=== PATIENT | female | born 1975 ===

== ENCOUNTER 2017-05-14 09:00 | Outpatient (CLI) | payer OTHER | END 2017-05-14 11:00 | disposition home or self-care (01) | LOC: ECT 09:00 | DX: F33.2 Major depressive disorder, recurrent severe without psychotic features (principal); F90.9 Attention-deficit hyperactivity disorder, unspecified type; F42.9 Obsessive-compulsive disorder, unspecified; I10 Essential (primary) hypertension; M06.9 Rheumatoid arthritis, unspecified; M47.9 Spondylosis, unspecified; Z90.49 Acquired absence of other specified parts of digestive tract ==

== ENCOUNTER 2017-05-29 05:08 | Outpatient (RCR) | payer OTHER ==
[~2017-05-29] VITALS: Ht 142.2 cm; Wt 53.5 kg
[2017-05-29] MEDS ORDERED: Succinylcholine 20mg/ml 10ml vial ONE ×4 (05:09)
[2017-05-29] MEDS ORDERED: Midazolam 2mg/2ml Inj ONE ×4 (05:09)
[2017-05-29] MEDS ORDERED: Norco 5mg/325mg tab ONE ×4 (05:09)
[2017-05-29] MEDS ORDERED: Methohexital Sodium Syr 100mg/10ml IVP ONE ×4 (05:09)
[2017-05-29] MEDS ORDERED: SUMAtriptan 6mg/0.5ml Inj SUBQ ONE ×4 (05:09)
[2017-05-29] MEDS ORDERED: NS 550ML IV ONE ×4 (05:09)
[2017-05-29] MEDS ORDERED: Norco 5mg/325mg tab ORAL PRN (07:30)
[2017-05-31] MEDS ORDERED: NS 550ML IV ONE (07:00)
[2017-05-31] MEDS ORDERED: Midazolam 2mg/2ml Inj ONE (07:00)
[2017-05-31] MEDS ORDERED: Methohexital Sodium Syr 100mg/10ml IVP ONE (07:00)
[2017-05-31] MEDS ORDERED: Succinylcholine 20mg/ml 10ml vial ONE (07:00)
[2017-05-31] MEDS ORDERED: Norco 5mg/325mg tab ONE (07:00)
[2017-05-31] MEDS ORDERED: SUMAtriptan 6mg/0.5ml Inj SUBQ ONE (07:00)
[2017-05-31] MEDS ORDERED: Norco 5mg/325mg tab ORAL PRN (09:04)
[2017-06-03] MEDS ORDERED: SUMAtriptan 6mg/0.5ml Inj SUBQ ONE (08:00)
[2017-06-03] MEDS ORDERED: Methohexital Sodium Syr 100mg/10ml IVP ONE (08:00)
[2017-06-03] MEDS ORDERED: NS 550ML IV ONE (08:00)
[2017-06-03] MEDS ORDERED: Norco 5mg/325mg tab ONE (08:00)
[2017-06-03] MEDS ORDERED: Succinylcholine 20mg/ml 10ml vial ONE (08:00)
[2017-06-03] MEDS ORDERED: Norco 5mg/325mg tab ORAL PRN (09:44)
[2017-06-05] MEDS ORDERED: Norco 5mg/325mg tab ONE (05:00)
[2017-06-05] MEDS ORDERED: SUMAtriptan 6mg/0.5ml Inj SUBQ ONE (05:00)
[2017-06-05] MEDS ORDERED: Succinylcholine 20mg/ml 10ml vial ONE (05:00)
[2017-06-05] MEDS ORDERED: Methohexital Sodium Syr 100mg/10ml IVP ONE (05:00)
[2017-06-05] MEDS ORDERED: NS 550ML IV ONE (05:00)
[2017-06-05] MEDS ORDERED: Midazolam 2mg/2ml Inj ONE (05:00)
[2017-06-05] MEDS ORDERED: Norco 5mg/325mg tab ORAL PRN (10:10)
[2017-06-07] MEDS ORDERED: Succinylcholine 20mg/ml 10ml vial ONE (07:00)
[2017-06-07] MEDS ORDERED: SUMAtriptan 6mg/0.5ml Inj SUBQ ONE (07:00)
[2017-06-07] MEDS ORDERED: Methohexital Sodium Syr 100mg/10ml IVP ONE (07:00)
[2017-06-07] MEDS ORDERED: Midazolam 2mg/2ml Inj ONE (07:00)
[2017-06-07] MEDS ORDERED: Norco 5mg/325mg tab ONE (07:00)
[2017-06-07] MEDS ORDERED: NS 550ML IV ONE (07:00)
[2017-06-07] MEDS ORDERED: Norco 5mg/325mg tab ORAL PRN (07:59)
[2017-06-10] MEDS ORDERED: Norco 5mg/325mg tab ORAL PRN (08:04)
[2017-06-12] MEDS ORDERED: Norco 5mg/325mg tab ORAL ONE (10:09)
[2017-06-14] MEDS ORDERED: Norco 5mg/325mg tab ORAL PRN (09:02)
== END 2017-06-17 | disposition home or self-care (01) ==
LOC: ECT 05:08
DX: F33.2 Major depressive disorder, recurrent severe without psychotic features (principal); F90.9 Attention-deficit hyperactivity disorder, unspecified type; Z90.49 Acquired absence of other specified parts of digestive tract; I10 Essential (primary) hypertension; M32.9 Systemic lupus erythematosus, unspecified; M06.9 Rheumatoid arthritis, unspecified; M47.9 Spondylosis, unspecified; Z98.84 Bariatric surgery status
CPT/HCPCS: 90870; J0330; J2250; J3030; J7040

== ENCOUNTER 2017-06-19 05:31 | Outpatient (RCR) | payer OTHER ==
[~2017-06-19] VITALS: Ht 142.2 cm; Wt 53.5 kg
[2017-06-19] MEDS ORDERED: NS 550ML IV ONE (05:32)
[2017-06-19] MEDS ORDERED: Midazolam 2mg/2ml Inj ONE (05:32)
[2017-06-19] MEDS ORDERED: Methohexital Sodium Syr 100mg/10ml IVP ONE (05:32)
[2017-06-19] MEDS ORDERED: SUMAtriptan 6mg/0.5ml Inj SUBQ ONE (05:32)
[2017-06-19] MEDS ORDERED: Succinylcholine 20mg/ml 10ml vial ONE (05:32)
[2017-06-19] MEDS ORDERED: Norco 5mg/325mg tab ONE (05:32)
[2017-06-19] MEDS ORDERED: Norco 5mg/325mg tab ORAL PRN (09:48)
[2017-06-26] MEDS ORDERED: Midazolam 2mg/2ml Inj ONE (07:00)
[2017-06-26] MEDS ORDERED: Succinylcholine 20mg/ml 10ml vial ONE (07:00)
[2017-06-26] MEDS ORDERED: Norco 5mg/325mg tab ONE (07:00)
[2017-06-26] MEDS ORDERED: NS 550ML IV ONE (07:00)
[2017-06-26] MEDS ORDERED: Methohexital Sodium Syr 100mg/10ml IVP ONE (07:00)
[2017-06-26] MEDS ORDERED: SUMAtriptan 6mg/0.5ml Inj SUBQ ONE (07:00)
[2017-06-26] MEDS ORDERED: Norco 5mg/325mg tab ORAL PRN (08:53)
[2017-07-08] MEDS ORDERED: Methohexital Sodium Syr 100mg/10ml IVP ONE (07:00)
[2017-07-08] MEDS ORDERED: SUMAtriptan 6mg/0.5ml Inj SUBQ ONE (07:00)
[2017-07-08] MEDS ORDERED: Succinylcholine 20mg/ml 10ml vial ONE (07:00)
[2017-07-08] MEDS ORDERED: Norco 5mg/325mg tab ONE (07:00)
[2017-07-08] MEDS ORDERED: Midazolam 2mg/2ml Inj ONE (07:00)
[2017-07-08] MEDS ORDERED: NS 550ML IV ONE (07:00)
[2017-07-08] MEDS ORDERED: Norco 5mg/325mg tab ORAL PRN (10:21)
[2017-07-17] MEDS ORDERED: Succinylcholine 20mg/ml 10ml vial ONE (07:00)
[2017-07-17] MEDS ORDERED: Midazolam 2mg/2ml Inj ONE (07:00)
[2017-07-17] MEDS ORDERED: SUMAtriptan 6mg/0.5ml Inj SUBQ ONE (07:00)
[2017-07-17] MEDS ORDERED: Norco 5mg/325mg tab ONE (07:00)
[2017-07-17] MEDS ORDERED: NS 550ML IV ONE (07:00)
[2017-07-17] MEDS ORDERED: Methohexital Sodium Syr 100mg/10ml IVP ONE (07:00)
[2017-07-17] MEDS ORDERED: Norco 5mg/325mg tab ORAL PRN (09:17)
[2017-07-17] MEDS ORDERED: Atropine Sulfate 0.4mg/ml inj IVP PRN (09:17)
== END 2017-07-18 | disposition home or self-care (01) ==
LOC: ECT 05:31
DX: F33.2 Major depressive disorder, recurrent severe without psychotic features (principal)
CPT/HCPCS: 90870; J0330; J2250; J3030; J7040

== ENCOUNTER 2017-08-02 04:53 | Outpatient (RCR) | payer OTHER ==
[~2017-08-02] VITALS: Ht 142.2 cm; Wt 53.5 kg
[2017-08-02] MEDS ORDERED: SUMAtriptan 6mg/0.5ml Inj SUBQ ONE (04:54)
[2017-08-02] MEDS ORDERED: Norco 5mg/325mg tab ONE (04:54)
[2017-08-02] MEDS ORDERED: Methohexital Sodium Syr 100mg/10ml IVP ONE (04:54)
[2017-08-02] MEDS ORDERED: Succinylcholine 20mg/ml 10ml vial ONE (04:54)
[2017-08-02] MEDS ORDERED: Midazolam 2mg/2ml Inj ONE (04:54)
[2017-08-02] MEDS ORDERED: NS 500ML IV ONE (04:54)
[2017-08-02] MEDS ORDERED: Sodium Chloride 500ML 500 ML IV ONE (08:26)
[2017-08-02] MEDS ORDERED: Norco 5mg/325mg tab ORAL PRN (08:26)
== END 2017-08-17 | disposition home or self-care (01) ==
LOC: ECT 04:53
DX: F33.2 Major depressive disorder, recurrent severe without psychotic features (principal)
CPT/HCPCS: 90870; J0330; J2250; J3030; J7040

== ENCOUNTER 2017-08-21 07:42 | Outpatient (RCR) | payer OTHER ==
[~2017-08-21] VITALS: Ht 142.2 cm; Wt 53.5 kg
[2017-08-21] MEDS ORDERED: Norco 5mg/325mg tab ONE (07:43)
[2017-08-21] MEDS ORDERED: Succinylcholine 20mg/ml 10ml vial ONE (07:43)
[2017-08-21] MEDS ORDERED: Midazolam 2mg/2ml Inj ONE (07:43)
[2017-08-21] MEDS ORDERED: SUMAtriptan 6mg/0.5ml Inj SUBQ ONE (07:43)
[2017-08-21] MEDS ORDERED: Methohexital Sodium Syr 100mg/10ml IVP ONE (07:43)
[2017-08-21] MEDS ORDERED: NS 500ML IV ONE (07:43)
[2017-08-21] MEDS ORDERED: Atropine Sulfate 0.4mg/ml inj IVP PRN (09:23)
[2017-08-21] MEDS ORDERED: Sodium Chloride 500ML 500 ML IV ONE (09:23)
[2017-09-16] MEDS ORDERED: SUMAtriptan 6mg/0.5ml Inj SUBQ ONE (07:00)
[2017-09-16] MEDS ORDERED: Norco 5mg/325mg tab ONE (07:00)
[2017-09-16] MEDS ORDERED: Methohexital Sodium Syr 100mg/10ml IVP ONE (07:00)
[2017-09-16] MEDS ORDERED: Succinylcholine 20mg/ml 10ml vial ONE (07:00)
[2017-09-16] MEDS ORDERED: NS 500ML IV ONE (07:00)
[2017-09-16] MEDS ORDERED: Midazolam 2mg/2ml Inj ONE (07:00)
[2017-09-16 08:38] VITALS: BP 95/78
[2017-09-16] MEDS ORDERED: Norco 5mg/325mg tab ORAL PRN (08:51)
[2017-09-16] MEDS ORDERED: Sodium Chloride 500ML 500 ML IV ONE (08:51)
[2017-09-16 08:55] VITALS: BP 109/70
[2017-09-16 09:00] VITALS: BP 113/69
[2017-09-16 09:05] VITALS: BP 119/82
[2017-09-16 09:10] VITALS: BP 117/77
== END 2017-09-17 | disposition home or self-care (01) ==
LOC: ECT 07:42
DX: F33.2 Major depressive disorder, recurrent severe without psychotic features (principal); F90.9 Attention-deficit hyperactivity disorder, unspecified type; Z90.49 Acquired absence of other specified parts of digestive tract; I10 Essential (primary) hypertension; M32.9 Systemic lupus erythematosus, unspecified; M06.9 Rheumatoid arthritis, unspecified; M47.9 Spondylosis, unspecified; Z98.84 Bariatric surgery status
CPT/HCPCS: 90870; J0330; J2250; J3030; J7040

== ENCOUNTER 2017-10-21 05:16 | Outpatient (RCR) | payer OTHER ==
[~2017-10-21] VITALS: Ht 30.5 cm; Wt 0.5 kg
[2017-10-21] MEDS ORDERED: Methohexital Sodium Syr 100mg/10ml IVP ONE (05:17)
[2017-10-21] MEDS ORDERED: SUMAtriptan 6mg/0.5ml Inj SUBQ ONE (05:17)
[2017-10-21] MEDS ORDERED: Midazolam 2mg/2ml Inj ONE (05:17)
[2017-10-21] MEDS ORDERED: NS 500ML ONE (05:17)
[2017-10-21] MEDS ORDERED: Succinylcholine 20mg/ml 10ml vial ONE (05:17)
[2017-10-21] MEDS ORDERED: Norco 5mg/325mg tab ONE (05:17)
[2017-10-21 07:57] VITALS: BP 110/77
[2017-10-21] MEDS ORDERED: Norco 5mg/325mg tab ORAL PRN ×2 (08:13)
[2017-10-21] MEDS ORDERED: Sodium Chloride 500ML 500 ML IV ONE (08:13)
[2017-10-21 08:15] VITALS: BP 112/63
[2017-10-21 08:20] VITALS: BP 115/63
[2017-10-21 08:25] VITALS: BP 118/64
[2017-10-21 08:30] VITALS: BP 125/61
== END 2017-11-17 | disposition home or self-care (01) ==
LOC: ECT 05:16
DX: F33.2 Major depressive disorder, recurrent severe without psychotic features (principal)
CPT/HCPCS: 90870; J0330; J2250; J3030; J7040

== ENCOUNTER 2017-11-20 06:18 | Outpatient (RCR) | payer OTHER ==
[~2017-11-20] VITALS: Ht 142.2 cm; Wt 53.5 kg
[2017-11-20] MEDS ORDERED: Midazolam 2mg/2ml Inj ONE (06:19)
[2017-11-20] MEDS ORDERED: Methohexital Sodium Syr 100mg/10ml IVP ONE (06:19)
[2017-11-20] MEDS ORDERED: Succinylcholine 20mg/ml 10ml vial ONE (06:19)
[2017-11-20] MEDS ORDERED: Norco 5mg/325mg tab ONE (06:19)
[2017-11-20] MEDS ORDERED: SUMAtriptan 6mg/0.5ml Inj SUBQ ONE (06:19)
[2017-11-20 08:22] VITALS: BP 108/74
[2017-11-20] MEDS ORDERED: Sodium Chloride 500ML 500 ML IV ONE (08:41)
[2017-11-20] MEDS ORDERED: Norco 5mg/325mg tab ORAL PRN (08:41)
[2017-11-20 08:45] VITALS: BP 106/50
[2017-11-20 08:50] VITALS: BP 112/64
[2017-11-20 08:55] VITALS: BP 121/72
[2017-11-20 09:00] VITALS: BP 118/73
[2017-12-16] MEDS ORDERED: Succinylcholine 20mg/ml 10ml vial ONE (06:00)
[2017-12-16] MEDS ORDERED: Midazolam 2mg/2ml Inj ONE (06:00)
[2017-12-16] MEDS ORDERED: SUMAtriptan 6mg/0.5ml Inj SUBQ ONE (06:00)
[2017-12-16] MEDS ORDERED: Methohexital Sodium Syr 100mg/10ml IVP ONE (06:00)
[2017-12-16] MEDS ORDERED: Esmolol 100mg/10ml Inj ONE (06:00)
[2017-12-16] MEDS ORDERED: Norco 5mg/325mg tab ONE (06:00)
[2017-12-16] MEDS ORDERED: NS 500ML ONE (06:00)
== END 2017-12-18 | disposition home or self-care (01) ==
LOC: ECT 06:18
DX: F33.2 Major depressive disorder, recurrent severe without psychotic features (principal); F90.9 Attention-deficit hyperactivity disorder, unspecified type; Z90.49 Acquired absence of other specified parts of digestive tract; I10 Essential (primary) hypertension; M32.9 Systemic lupus erythematosus, unspecified; M26.609 Unspecified temporomandibular joint disorder, unspecified side; M06.9 Rheumatoid arthritis, unspecified; M47.819 Spondylosis without myelopathy or radiculopathy, site unspecified
CPT/HCPCS: 90870; J0330; J2250; J3030; J7040

== ENCOUNTER 2018-01-17 05:00 | Outpatient (RCR) | payer OTHER ==
[~2018-01-17] VITALS: Ht 142.2 cm; Wt 53.5 kg
[2018-01-17] MEDS ORDERED: NS 500ML ONE (05:01)
[2018-01-17] MEDS ORDERED: Norco 5mg/325mg tab ONE (05:01)
[2018-01-17] MEDS ORDERED: Midazolam 2mg/2ml Inj ONE (05:01)
[2018-01-17] MEDS ORDERED: Methohexital Sodium Syr 100mg/10ml IVP ONE (05:01)
[2018-01-17] MEDS ORDERED: SUMAtriptan 6mg/0.5ml Inj SUBQ ONE (05:01)
[2018-01-17 08:54] VITALS: BP 104/68
[2018-01-17 09:13] VITALS: BP 112/59
[2018-01-17] MEDS ORDERED: Sodium Chloride 500ML 500 ML IV ONE (09:13)
[2018-01-17] MEDS ORDERED: Atropine Sulfate 0.4mg/ml inj IVP PRN (09:13)
[2018-01-17 09:18] VITALS: BP 102/60
[2018-01-17 09:23] VITALS: BP 111/62
[2018-01-17 09:28] VITALS: BP 121/67
[2018-01-17 09:33] VITALS: BP 118/68
[2018-02-14] MEDS ORDERED: Norco 5mg/325mg tab ONE (08:00)
[2018-02-14] MEDS ORDERED: NS 500ML ONE (08:00)
[2018-02-14] MEDS ORDERED: Succinylcholine 20mg/ml 10ml vial ONE (08:00)
[2018-02-14] MEDS ORDERED: Methohexital Sodium Syr 100mg/10ml IVP ONE (08:00)
[2018-02-14] MEDS ORDERED: Midazolam 2mg/2ml Inj ONE (08:00)
[2018-02-14] MEDS ORDERED: SUMAtriptan 6mg/0.5ml Inj SUBQ ONE (08:00)
[2018-02-14 08:06] VITALS: BP 126/79
[2018-02-14] MEDS ORDERED: Sodium Chloride 500ML 500 ML IV ONE (08:23)
[2018-02-14] MEDS ORDERED: Norco 5mg/325mg tab ORAL PRN (08:23)
[2018-02-14] MEDS ORDERED: Atropine Sulfate 0.4mg/ml inj IVP PRN (08:23)
[2018-02-14 08:25] VITALS: BP 118/63
[2018-02-14 08:30] VITALS: BP 123/62
[2018-02-14 08:35] VITALS: BP 121/70
[2018-02-14 08:40] VITALS: BP 132/72
== END 2018-02-15 | disposition home or self-care (01) ==
LOC: ECT 05:00
DX: F33.2 Major depressive disorder, recurrent severe without psychotic features (principal); F90.9 Attention-deficit hyperactivity disorder, unspecified type; Z90.49 Acquired absence of other specified parts of digestive tract; I10 Essential (primary) hypertension; M32.9 Systemic lupus erythematosus, unspecified; M26.609 Unspecified temporomandibular joint disorder, unspecified side; M06.9 Rheumatoid arthritis, unspecified; M47.819 Spondylosis without myelopathy or radiculopathy, site unspecified
CPT/HCPCS: 90870; J0330; J2250; J3030; J7040